=== PATIENT | male | born 1970 | race Caucasian/White ===

== ENCOUNTER 2020-09-04 16:23 | Emergency (ER) | payer MEDICARE ==
[~2020-09-04] VITALS: Ht 177.8 cm; Wt 69.6 kg
[2020-09-04 16:30] VITALS: BP 121/81
--- NOTE | 2020-09-04 17:59 | REP ---
INDICATION: pain. COMPARISON: None. TECHNIQUE: Four views. FINDINGS: Four views of the left knee demonstrate normal bones, joints, and soft tissues. No fracture or subluxation is seen. No opaque foreign body noted. No sunrise view is included. IMPRESSION: Negative four view left knee series. <Electronically signed by Osman Garcia > 09/04/20 [id number]
--- NOTE | 2020-09-04 18:00 | REP ---
INDICATION: pain. COMPARISON: None. TECHNIQUE: AP view of the pelvis and AP and frogleg views of the left hip are obtained. FINDINGS: The bony pelvic ring is intact. No pelvic or sacral fracture is seen. No hip fracture is observed on either side. Periarticular soft tissues are unremarkable. Femoral heads are smooth and rounded. Joint spaces are preserved. IMPRESSION: Negative radiographs of the left hip and pelvis. <Electronically signed by Osman Garcia > 09/04/20 [id number]
--- NOTE | 2020-09-04 18:52 | REPVR ---
PROCEDURE INFORMATION: Exam: US Scrotum Exam date and time: 09/04/2020 6:20 PM Age: 50 years old Clinical indication: Scrotum pain; Additional info: Lef ttestciluar pain TECHNIQUE: Imaging protocol: Real-time ultrasound of the scrotum and contents with color Doppler and image documentation. COMPARISON: No relevant prior studies available. FINDINGS: Right testicle: Right testicle measures 4.4 x 1.9 x 3.1 cm. Right testicle appears within normal limits without torsion. Left testicle: Left testicle measures 4.5 x 2.7 x 2.9 cm. Left testicle appears within normal limits without torsion. Epididymides: There are small bilateral epididymal cysts. Scrotum: Normal. IMPRESSION: No acute abnormality. Electronically signed by: Steven Flores On 09/04/2020 18:52:37 PM
[2020-09-04 18:54] LABS: BASO # 0.1 10^3/uL (0.0-0.2); BASO % 0.5 % (0.0-1.0); EOS # 0.2 10^3/uL (0.0-0.5); EOS % 1.2 % (0.0-3.0); HEMATOCRIT 47.1 % (42.0-52.0); LYMPH # 3.1 10^3/uL (1.5-5.0); LYMPH % 22.8 % (24.0-44.0); MEAN CORPUSCULAR HEMOGLOBIN 30.4 pg (27.0-33.0); MEAN CORPUSCULAR VOLUME 89.4 fl (80.0-96.0); MONO # 1.2 10^3/uL (0.0-0.8); MONO % 8.7 % (0.0-5.0); NEUTROPHILS # 8.9 10^3/uL (1.5-8.5); NEUTROPHILS % 66.4 % (36.0-66.0); PLATELET COUNT, AUTOMATED 297 10^3/uL (150-450); RED BLOOD COUNT 5.27 10^6/uL (4.30-6.10)
[2020-09-04 18:56] LABS: WHITE BLOOD COUNT 13.5 10^3/uL (4.0-10.0)
--- NOTE | 2020-09-04 18:57 | REPVR ---
PROCEDURE INFORMATION: Exam: US Pelvis Limited, Transabdominal, Soft tissue Exam date and time: 09/04/2020 6:20 PM Age: 50 years old Clinical indication: Pain; Other: Groin to scrotum; Additional info: Left ? hernia TECHNIQUE: Imaging protocol: Real-time transabdominal pelvic ultrasound with image documentation. Limited exam. Exam focused on the soft tissue. COMPARISON: CR Hip,AP,LAT to include Pelvis 09/04/2020 5:26 PM FINDINGS: There is a left-sided inguinal hernia containing fat. Defect measures 1 cm at rest and 1.8 cm with Valsalva. No bowel is visualized. Hernia is reducible. IMPRESSION: Small left inguinal hernia containing fat. Electronically signed by: Steven Flores On 09/04/2020 18:57:40 PM
[2020-09-04 19:11] LABS: ALT/SGPT 18 U/L (12-78); BILIRUBIN,TOTAL 0.7 MG/DL (0.2-1.0); BLOOD UREA NITROGEN 8 MG/DL (7-18); CALCIUM LEVEL 9.3 MG/DL (8.5-10.1); CARBON DIOXIDE LEVEL 25 MEQ/L (21-32); CHLORIDE LEVEL 104 MEQ/L (98-107); CREATININE FOR GFR 0.79 MG/DL (0.70-1.30); FREE THYROXINE INDEX 4.5 % (1.4-3.8); GLOMERULAR FILTRATION RATE > 60.0 (>60); GLUCOSE, FASTING 74 MG/DL (70-100); POTASSIUM SERUM 3.8 MEQ/L (3.5-5.1); SODIUM LEVEL 137 MEQ/L (136-145); T UPTAKE 40 % (33-40); THYROXINE (T4) 11.2 UG/DL (4.5-12.0); TOTAL PROTEIN 7.5 GM/DL (6.4-8.2)
[2020-09-04 19:32] LABS: RSV AMPLIFICATION NEGATIVE (NEGATIVE)
[2020-09-04 20:28] LABS: CHLAMYDIA DNA AMPLIFICATION NEGATIVE (NEGATIVE); GC DNA AMPLIFICATION NEGATIVE (NEGATIVE)
[2020-09-04] MEDS ORDERED: KETOROLAC 60MG 2ML VIAL IM ONE (21:45)
[2020-09-04] MEDS ORDERED: IBUP80TA PO (22:29)
--- NOTE | 2020-09-05 19:26 | ECGEPIP ---
[facility] - ED Test Date: 2020-09-04 Pat Name: SOHAIL TRUJILLO Department: Room: - Gender: Male [employer]: : [id number] Requested By: Jennifer Cheung Order Number: [id number] Reading MD: Asael Stacy Measurements Intervals [place] Rate: 74 P: 13 PA: 128 QRS: 58 QRSD: 83 T: 50 QT: 372 QTc: 413 Interpretive Statements SINUS RHYTHM BENIGN EARLY REPOLARIZATION NO PRIORS FOR COMPARISON Electronically Signed on 09-05-2020 19:25:41 EST by Asael Stacy
== END 2020-09-04 23:28 | disposition home or self-care (01) ==
LOC: M ED 16:23
DX: K40.90 Unilateral inguinal hernia, without obstruction or gangrene, not specified as recurrent (principal); N50.812 Left testicular pain
CPT/HCPCS: 73502; 73564; 76857; 76870; 80053; 81001; 84436; 84443; 84479; 85025; 87631; 87661; 93005; 93976; 96372; 99284; J1885